=== PATIENT | male | born 1995 ===

== ENCOUNTER 2018-11-14 22:48 | Emergency (ER) | payer SELFPAY ==
[~2018-11-14] VITALS: Ht 185.4 cm; Wt 86.0 kg
[2018-11-14 22:59] VITALS: BP 158/88
== END 2018-11-14 23:12 | disposition left against medical advice (07) ==
LOC: ER 22:48
DX: M79.672 Pain in left foot (principal); Z53.21 Procedure and treatment not carried out due to patient leaving prior to being seen by health care provider